=== PATIENT | female | born 1950 | race Caucasian/White ===

== ENCOUNTER 2019-04-18 18:32 | Emergency (ER) | payer OTHER ==
--- NOTE | 2019-04-18 19:05 | ERPHSYRPT ---
- History of Present Illness Time Seen by Provider: 04/18/19 19:02 Historian: patient Exam Limitations: no limitations Physician History: 68-year-old white female arrives with complaint of pain in the anterior chest described as a pressure also states she feels "gassy" symptoms for 3-4 hours. Patient states that she awoke this morning had a headache she took total of 3 tablets. Than later she began to feel "gassy in the anterior chest she has no shortness of breath no nausea no vomiting she continues to feel "gassy in her anterior chest. Past medical history includes leaky heart valve past surgical history includes orthopedic surgery, bilateral hips, foot surgery Social history denies tobacco use denies illicit drug use admits to occasional alcohol use Timing/Duration: today (chest discomfort for 3-4 hours) Activities at Onset: none Quality: pressure, other (feels gassy) Location: substernal Chest Pain Radiation: no radiation Severity of Pain-Max: moderate Severity of Pain-Current: moderate Modifying Factors: Improves With: aspirin (Excedrin) Associated Symptoms: No nausea, No vomiting, No palpitations, No heartburn, No abdominal pain, No shortness of breath, No cough, No hurts to breathe, No diaphoresis, No chills, No fever, No fatigue, No weakness, No swelling/lump in chest, No syncope, No rash, No headache, No dizziness, No edema, No back pain Aspirin Treatment Today: provided at home (patient 3 full size Excedrin tablets) Allergies/Adverse Reactions: sulfamethoxazole [From Bactrim] Allergy (Unknown, Verified 06/30/13 04:49) trimethoprim [From Bactrim] Allergy (Unknown, Verified 06/30/13 04:49) Home Medications: Omeprazole [Prilosec] 40 mg PO DAILY 06/30/13 [History] Hx Tetanus, Diphtheria Vaccination/Date Given: Yes Hx Influenza Vaccination/Date Given: No Hx Pneumococcal Vaccination/Date Given: No - Review of Systems Constitutional: No Fever, No Chills Eyes: No Symptoms Ears, Nose, & Throat: No Symptoms Respiratory: No Cough, No Dyspnea Cardiac: Chest Pain, No No Symptoms, No Edema, No Palpitations, No Syncope, No PND, No Other Abdominal/Gastrointestinal: Other (patient belching), No Nausea, No Vomiting, No Diarrhea, No Constipation, No Hematemesis, No Hematochezia, No Melena, No Dysphagia, No Appetite Changes Genitourinary Symptoms: No Dysuria Musculoskeletal: No Back Pain, No Neck Pain Skin: No Rash Neurological: No Dizziness, No Focal Weakness, No Sensory Changes Psychological: No Symptoms Endocrine: No Symptoms (I had not seen an EKG we need one) All Other Systems: Reviewed and Negative - Past Medical History Pertinent Past Medical History: Yes Neurological History: No Pertinent History ENT History: No Pertinent History Cardiac History: Other Respiratory History: No Pertinent History Endocrine Medical History: No Pertinent History Musculoskeletal History: No Pertinent History GI Medical History: No Pertinent History History: No Pertinent History Psycho-Social History: No Pertinent History Female Reproductive Disorders: No Pertinent History Other Medical History: "LEAKY VALVE" - Past Surgical History Past Surgical History: Yes Neuro Surgical History: No Pertinent History Cardiac: No Pertinent History Respiratory: No Pertinent History Gastrointestinal: No Pertinent History Genitourinary: No Pertinent History Musculoskeletal: Orthopedic Surgery Female Surgical History: No Pertinent History Other Surgical History: RT HIP SX AND FOOT SX - Social History Smoking Status: Never smoker Exposure to second hand smoke: No Drug Use: none Patient Lives Alone: No - Nursing Vital Signs Nursing Vital Signs: Initial Vital Signs Pulse Rate 138 H 04/18/19 18:56 Respiratory Rate 18 04/18/19 18:56 Blood Pressure 120/91 04/18/19 18:56 Pain Scale Pain Intensity 3 - Physical Exam General Appearance: no apparent distress, alert Eye Exam: PERRL/EOMI, eyes nml inspection Ears, Nose, Throat Exam: normal ENT inspection, moist mucous membranes Neck Exam: normal inspection, non-tender, supple, full range of motion Respiratory Exam: normal breath sounds, lungs clear, No respiratory distress Cardiovascular Exam: normal peripheral pulses, tachycardia, capillary refill <2 sec Gastrointestinal/Abdomen Exam: soft, No tenderness, No mass Back Exam: normal inspection, No CVA tenderness, No vertebral tenderness Extremity Exam: normal inspection, normal range of motion Neurologic Exam: alert, oriented x 3, cooperative, gantry rigger II-XII nml as tested, normal mood/affect, sensation nml, No motor deficits Skin Exam: normal color, warm, dry SpO2 Interpretation: normal (this is not some in Jessica. is her sats97%) - Course Nursing assessment & vital signs reviewed: Yes EKG Interpreted by Me: RATE (145 bpm), Sinus Tach, NORMAL AXIS, Other (EKG: Supraventricular tachycardia,, 145 beats per minute normal axis no acute ST or T wave changes) - Radiology Exams Chest X-ray Interpretation: Interpreted by me (no acute disease process) Ordered Tests: Active Orders 24 hr Category Date Time Status Commercial Pest Control Technician STAT Care 04/18/19 19:01 Active EKG-ER Only STAT Care 04/18/19 19:01 Active EKG-ER Only STAT Care 04/18/19 21:12 Active IV Insertion STAT Care 04/18/19 19:01 Active Pulse Oximetry (ED) STAT Care 04/18/19 19:01 Active CHEST 1 VIEW (PORTABLE) Stat Exams 04/18/19 19:01 Taken AMYLASE Stat Lab 04/18/19 19:00 Completed CBC W DIFF Stat Lab 04/18/19 19:00 Completed CMP Stat Lab 04/18/19 19:00 Completed D-DIMER QUANTITATION Stat Lab 04/18/19 19:00 Completed LIPASE Stat Lab 04/18/19 19:00 Completed PROTIME WITH INR Stat Lab 04/18/19 19:00 Completed PTT Stat Lab 04/18/19 19:00 Completed TROPONIN Q3H Lab 04/18/19 19:00 Completed TROPONIN Q3H Lab 04/18/19 22:15 Completed TROPONIN Q3H Lab 04/19/19 01:15 Ordered TROPONIN Q3H Lab 04/19/19 04:15 Ordered TROPONIN Q3H Lab 04/19/19 07:15 Ordered Medication Summary Generic Name Dose Route Start Last Admin Trade Name Freq PRN Reason Stop Dose Admin Sodium Chloride 1,000 mls @ 100 mls/hr 04/18/19 19:15 04/18/19 19:31 Sodium Chloride 0.9% 1000 Ml IV 05/18/19 19:14 100 mls/hr .Q10H SOREN Administration Diltiazem HCl 100 mls @ 10 mls/hr 04/18/19 19:45 04/18/19 20:35 Cardizem Drip 100 Mg/100 Ml D5w IV 05/18/19 19:44 10 mg/hr .Q10H PRN 10 mls/hr HEART RATE/ A-FIB Administration Protocol 10 MG/HR Sodium Chloride 1,000 mls @ 100 mls/hr 04/18/19 22:45 Sodium Chloride 0.9% 1000 Ml IV 05/18/19 22:44 .Q10H SOREN Discontinued Medications Generic Name Dose Route Start Last Admin Trade Name Freq PRN Reason Stop Dose Admin Diltiazem HCl 10 mg 04/18/19 19:14 04/18/19 19:31 Cardizem Iv 50 Mg/10 Ml IV 04/18/19 19:15 10 mg STAT ONE Administration Diltiazem HCl Confirm 04/18/19 19:15 Cardizem Iv 50 Mg/10 Ml Administered 04/18/19 19:16 Dose 50 mg IV .STK-MED ONE Diltiazem HCl 10 mg 04/18/19 19:31 04/18/19 19:41 Cardizem Iv 50 Mg/10 Ml IV 04/18/19 19:32 10 mg STAT ONE Administration Lorazepam 1 mg 04/18/19 19:10 04/18/19 19:30 Ativan 2 Mg/1 Ml Vial IV 04/18/19 19:11 1 mg STAT ONE Administration Lorazepam Confirm 04/18/19 19:10 Ativan 2 Mg/1 Ml Vial Administered 04/18/19 19:11 Dose 2 mg .ROUTE .STK-MED ONE Metoprolol Tartrate 2.5 mg 04/18/19 23:06 Lopressor 5 Mg/5 Ml Injection IV 04/18/19 23:07 STAT ONE Lab/Rad Data: Laboratory Result Diagrams 04/18/19 19:00 04/18/19 19:00 Laboratory Results 04/18/19 04/18/19 04/18/19 Range/Units 22:15 19:00 19:00 WBC (4.0-10.5) K/mm3 RBC (4.1-5.4) M/mm3 Hgb (12.0-16.0) gm/dl Hct (35-47) % MCV (78-100) fl MCH (26-32) pg MCHC (32-36) g/dl RDW (11.5-14.0) % Plt Count (150-450) K/mm3 MPV (6-9.5) fl Gran % (36.0-66.0) % Eos # (Auto) (0-0.5) Absolute Lymphs (auto) (1.0-4.6) Absolute Monos (auto) (0.0-1.3) Lymphocytes % (24.0-44.0) % Monocytes % (0.0-12.0) % Eosinophils % (0.00-5.0) % Basophils % (0.0-0.4) % Absolute Granulocytes (1.4-6.9) Basophils # (0-0.4) PT (9.95-12.35) SECONDS INR (0.8-3.0) APTT (25.3-37.0) SECONDS D-Dimer (215-500) ng/mL Sodium (137-145) mmol/L Potassium (3.5-5.1) mmol/L Chloride (98-107) mmol/L Carbon Dioxide (22-30) mmol/L Anion Gap (5-15) MEQ/L BUN (7-17) mg/dL Creatinine (0.52-1.04) mg/dL Estimated GFR ML/MIN Glucose (74-106) mg/dL Calcium (8.4-10.2) mg/dL Total Bilirubin (0.2-1.3) mg/dL AST (14-36) U/L ALT (0-35) U/L Alkaline Phosphatase (38-126) U/L Troponin I < 0.012 < 0.012 (0.000-0.034) ng/mL Serum Total Protein (6.3-8.2) g/dL Albumin (3.5-5.0) g/dL Amylase 97 (30-110) U/L Lipase 72 (23-300) U/L 04/18/19 04/18/19 04/18/19 Range/Units 19:00 19:00 19:00 WBC 6.8 (4.0-10.5) K/mm3 RBC 4.60 (4.1-5.4) M/mm3 Hgb 14.2 (12.0-16.0) gm/dl Hct 40.9 (35-47) % MCV 88.9 (78-100) fl MCH 30.9 (26-32) pg MCHC 34.7 (32-36) g/dl RDW 14.2 H (11.5-14.0) % Plt Count 210 (150-450) K/mm3 MPV 9.4 (6-9.5) fl Gran % 65.5 (36.0-66.0) % Eos # (Auto) 0.04 (0-0.5) Absolute Lymphs (auto) 1.77 (1.0-4.6) Absolute Monos (auto) 0.52 (0.0-1.3) Lymphocytes % 26.1 (24.0-44.0) % Monocytes % 7.7 (0.0-12.0) % Eosinophils % 0.6 (0.00-5.0) % Basophils % 0.1 (0.0-0.4) % Absolute Granulocytes 4.45 (1.4-6.9) Basophils # 0.01 (0-0.4) PT 10.7 (9.95-12.35) SECONDS INR 0.92 (0.8-3.0) APTT 28.4 (25.3-37.0) SECONDS D-Dimer 296 (215-500) ng/mL Sodium 129 L (137-145) mmol/L Potassium 3.4 L (3.5-5.1) mmol/L Chloride 90 L (98-107) mmol/L Carbon Dioxide 28 (22-30) mmol/L Anion Gap 14.9 (5-15) MEQ/L BUN 15 (7-17) mg/dL Creatinine 0.69 (0.52-1.04) mg/dL Estimated GFR > 60.0 ML/MIN Glucose 93 (74-106) mg/dL Calcium 9.5 (8.4-10.2) mg/dL Total Bilirubin 0.50 (0.2-1.3) mg/dL AST 33 (14-36) U/L ALT 26 (0-35) U/L Alkaline Phosphatase 74 (38-126) U/L Troponin I (0.000-0.034) ng/mL Serum Total Protein 7.6 (6.3-8.2) g/dL Albumin 4.6 (3.5-5.0) g/dL Amylase (30-110) U/L Lipase (23-300) U/L - Progress Progress: improved Air Movement: fair Progress Note: 04/18/19 21:[address] Santiago Padron patient's stone cleaner from [place]. He is requested that we go ahead and give the patient another fluid bolus go ahead and plan on putting her on metoprolol 5 mg IV. He states he can transfer the patient to [facility]. 04/18/19 21:33 Patient's repeat EKG SVT 135 beats per minute normal axis no acute ST or T wave changes 04/18/19 22:45 I discuss case with Dr. Jill Padron's partner at [facility], he has accepted the patient for transfer - Departure Departure Disposition: Transfer ([facility]) Clinical Impression: Supraventricular tachycardia Chest pain Qualifiers: Chest pain type: unspecified Qualified Code(s): R07.9 - Chest pain, unspecified Condition: Fair Critical Care Time: No Referrals: Provider,Unknown [Primary Care Provider] -
[2019-04-18] MEDS ORDERED: Sodium Chloride 0.9% 1000 ML 1,000 ML ONE ×4 (19:07→22:38)
[2019-04-18] MEDS ORDERED: Ativan 2 MG/1 ML VIAL ONE (19:10)
[2019-04-18] MEDS ORDERED: Ativan 2 MG/1 ML VIAL IV ONE (19:10)
[2019-04-18] MEDS ORDERED: Cardizem IV 50 MG/10 ML IV ONE ×3 (19:14→19:31)
[2019-04-18] MEDS ORDERED: Sodium Chloride 0.9% 1000 ML 1,000 ML IV SCH ×2 (19:15→22:45)
[2019-04-18 19:21] LABS: BASOPHIL % 0.1 % (0.0-0.4); Basophil (Absolute #) 0.01 (0-0.4); Eosinophil % 0.6 % (0.00-5.0); Eosinophil (Absolute #) 0.04 (0-0.5); Granulocyte Absolute (ANC) 4.45 (1.4-6.9); Granulocytes % 65.5 % (36.0-66.0); Hematocrit 40.9 % (35-47); Hemoglobin 14.2 gm/dl (12.0-16.0); Lymphocyte (Absolute #) 1.77 (1.0-4.6); Lymphocytes % 26.1 % (24.0-44.0); Mean Cell Volume 88.9 fl (78-100); Mean Corpuscular Hemoglobin 30.9 pg (26-32); Mean Corpuscular Hgb Concent. 34.7 g/dl (32-36); Mean Platelet Volume 9.4 fl (6-9.5); Monocyte (Absolute #) 0.52 (0.0-1.3); Monocytes % 7.7 % (0.0-12.0); Platelet Count 210 K/mm3 (150-450); Red Cell Distribution Width 14.2 % (11.5-14.0); White Blood Count 6.8 K/mm3 (4.0-10.5)
[2019-04-18 19:22] LABS: INR 0.92 (0.8-3.0); PROTIME 10.7 SECONDS (9.95-12.35)
[2019-04-18 19:24] LABS: ALBUMIN 4.6 g/dL (3.5-5.0); ALKALINE PHOSPHATASE 74 U/L (38-126); ANION GAP 14.9 MEQ/L (5-15); BLOOD UREA NITROGEN 15 mg/dL (7-17); CHLORIDE 90 mmol/L (98-107); Calcium 9.5 mg/dL (8.4-10.2); Carbon Dioxide 28 mmol/L (22-30); Creatinine 1 0.69 mg/dL (0.52-1.04); Glucose 93 mg/dL (74-106); Potassium 3.4 mmol/L (3.5-5.1); SGOT/AST 33 U/L (14-36); SGPT/ALT 26 U/L (0-35); SODIUM 129 mmol/L (137-145); Total Protein 7.6 g/dL (6.3-8.2)
[2019-04-18 19:25] LABS: PTT 28.4 SECONDS (25.3-37.0)
[2019-04-18 19:44] LABS: AMYLASE 97 U/L (30-110); LIPASE 72 U/L (23-300)
[2019-04-18] MEDS ORDERED: CARDIZEM DRIP 100 MG/100 ML D5W 100 ML IV PRN (19:45)
[2019-04-18] MEDS ORDERED: CARDIZEM DRIP 100 MG/100 ML D5W 100 ML IV ONE (20:25)
[2019-04-18] MEDS ORDERED: LOPRESSOR 5 MG/5 ML INJECTION IV ONE ×2 (23:06→23:46)
[2019-04-18 23:58] VITALS: BP 106/82; PULSE 115; O2SAT 91
--- NOTE | 2019-04-19 08:51 | XRAY ---
Indication: Chest pressure. Comparison: June 30, 2013. Portable chest less inflated and remains clear. Heart is not enlarged. Bony thorax intact again with mild osteopenia and degenerative changes. Impression: Nonacute chest.
== END 2019-04-19 00:10 | disposition home or self-care (01) ==
LOC: ED 18:32
DX: I47.1 Supraventricular tachycardia (principal); R07.9 Chest pain, unspecified; R51 Headache
CPT/HCPCS: 36000; 36415; 71045; 80053; 82150; 83690; 84484; 85025; 85379; 85610; 85730; 93005; 93041; 96360; 96361; 96365; 96374; 96375; 96376; 99285; J2060

== ENCOUNTER 2025-06-10 20:40 | Emergency (ER) | payer MEDICARE, OTHER ==
[2025-06-10 20:57] VITALS: RESP 18; TEMP 98.3
--- NOTE | 2025-06-10 21:16 | ERPHSYRPT ---
- History of Present Illness Time Seen by Provider: 06/10/25 20:50 Source: patient Exam Limitations: no limitations Patient Subjective Stated Complaint: c/o urinary tract infection, states she feels an urgency to urinate and pressure Triage Nursing Assessment: Patient brought to ED with c/o urinary tract infection. west went to [facility] 2 days ago and was put on antibiotics. [facility] called patient today and requested she come to an ED to Glucose and blood in her urine. Patient did not have bacterial growth in her urine. patient rates pain 1/10, gait steady, vitals wnl, skin w/n/d, patient doesn't appear to be in any distress at this time Physician History: Patient is a 74-year-old female presents to our ED as a referral from [facility] for evaluation of glucosuria and hematuria. Patient reports that she has been experiencing urinary symptomology including dysuria frequency and urgency associated with bladder pressure. Patient went to a [facility]. She advised that urinalysis suggested a urinary tract infection. Patient was started on Keflex which she is currently taking. Patient was called today by the [facility] and advised to come to the ED for an evaluation as there was blood and glucose in her urine. However patient is on Farxiga per her disability examiner. Farxiga causes glucosuria. Patient states that since she has started the antibiotics her symptoms have significantly improved. Patient is practically asymptomatic at this time. No fever no abdominal pain no nausea no vomiting no diarrhea no rash. at bedside. They voiced no other complaints or concerns at this time. Portions of this note were created with voice recognition technology. There may be grammatical, spelling, punctuation or sound alike errors Timing/Duration: today Severity: moderate Associated Symptoms: denies symptoms Allergies/Adverse Reactions: sulfamethoxazole [From Bactrim] Allergy (Unknown, Verified 06/10/25 20:57) trimethoprim [From Bactrim] Allergy (Unknown, Verified 06/10/25 20:57) Home Medications: Omeprazole [Prilosec] 40 mg PO DAILY 06/30/13 [History] Apixaban [Eliquis] 5 mg PO BID 06/10/25 [History] Atorvastatin Calcium 20 mg PO DAILY 06/10/25 [History] Cephalexin Mh 500 mg [Keflex 500 mg] 500 mg PO BID 06/10/25 [History] Dapagliflozin Propanediol [Farxiga] 10 mg PO DAILY 06/10/25 [History] Famotidine 20 mg PO DAILY PRN PRN 06/10/25 [History] Sertraline HCl [Zoloft] 25 mg PO DAILY 06/10/25 [History] Sotalol HCl [Betapace AF] 160 mg PO BID 06/10/25 [History] Valsartan 160 mg PO DAILY 06/10/25 [History] Hx Tetanus, Diphtheria Vaccination/Date Given: Yes Hx Influenza Vaccination/Date Given: Yes Hx Pneumococcal Vaccination/Date Given: No Travel Risk - International Travel Have you traveled outside of the country in past 3 weeks: No - Emerging Infectious Disease Are you exhibiting symptoms associated with any current EIDs: No - Review of Systems All Other Systems: Reviewed and Negative - Past Medical History Pertinent Past Medical History: Yes Neurological History: No Pertinent History ENT History: No Pertinent History Cardiac History: Arrhythmia, Hypertension Respiratory History: No Pertinent History Endocrine Medical History: No Pertinent History Musculoskeletal History: No Pertinent History GI Medical History: No Pertinent History History: No Pertinent History Psycho-Social History: Anxiety Female Reproductive Disorders: No Pertinent History Other Medical History: "LEAKY VALVE", a. fib - Past Surgical History Past Surgical History: Yes Neuro Surgical History: No Pertinent History Cardiac: No Pertinent History Respiratory: No Pertinent History Gastrointestinal: Appendectomy Genitourinary: No Pertinent History Musculoskeletal: Orthopedic Surgery Female Surgical History: No Pertinent History Other Surgical History: RT HIP SX AND FOOT SX, RIGHT KNEE REPLACEMENT - Social History Smoking Status: Never smoker Exposure to second hand smoke: No Drug Use: none - Social Determinants of Health Will the patient participate in the screening: Yes Do you worry about a steady place to live?: No Do you have any problems with any of the following?: No known problems In the past 12 months,have you had to go without utilities?: No Transportation Issues: No Has anyone in your support network made you feel unsafe?: No Have you or anyone in your house had to go w/o enough food: No - Nursing Vital Signs Nursing Vital Signs: Initial Vital Signs Temperature 98.3 F 06/10/25 20:45 Pulse Rate 71 06/10/25 20:45 Respiratory Rate 18 06/10/25 20:45 Blood Pressure 176/106 06/10/25 20:45 O2 Sat by Pulse Oximetry 100 06/10/25 20:45 Pain Scale Pain Intensity 1 - Physical Exam General Appearance: no apparent distress, alert Eye Exam: PERRL/EOMI, eyes nml inspection Ears, Nose, Throat Exam: normal ENT inspection, moist mucous membranes Neck Exam: normal inspection, full range of motion Respiratory Exam: normal breath sounds, lungs clear, No respiratory distress Cardiovascular Exam: regular rate/rhythm Gastrointestinal/Abdomen Exam: soft, normal bowel sounds, No tenderness, No mass Back Exam: normal inspection, normal range of motion, No CVA tenderness, No vertebral tenderness Extremity Exam: normal inspection, normal range of motion, contusions Neurologic Exam: alert, oriented x 3, cooperative, normal mood/affect, No motor deficits Skin Exam: normal color, warm, dry, No rash Lymphatic Exam: No adenopathy SpO2 Interpretation: normal SpO2: 100 O2 Delivery: Room Air - Course Nursing assessment & vital signs reviewed: Yes Ordered Tests: Active Orders 24 hr Category Date Time Status UA W/RFX UR CULTURE Stat Lab 06/10/25 21:05 Completed Lab/Rad Data: Laboratory Results 06/10/25 Range/Units 21:05 Urine Color Yellow (Yellow) Urine Appearance Clear (Clear) Urine pH 6.5 (4.6-8.0) Ur Specific [place] <=1.005 (1.005-1.030) Urine Protein Negative (Negative) Urine Glucose (UA) 500 A (Negative) mg/dL Urine Ketones Negative (Negative) Urine Blood Negative (Negative) Urine Nitrite Negative (Negative) Urine Bilirubin Negative (Negative) Urine Urobilinogen 0.2 (0.2) mg/dL Ur Leukocyte Esterase Trace A (Negative) U Hyaline Cast (Auto) NONE SEEN (0-2) /LPF Urine Microscopic RBC 0-2 (0-5) /HPF Urine Microscopic WBC 0-2 (0-5) /HPF Ur Epithelial Cells None Seen (None Seen) /HPF Urine Bacteria None Seen (None Seen) /HPF Urine Culture Reflexed NO (NO) - Progress Progress: improved Progress Note: 74-year-old female presents to our ED as a recommendation per her quick care provider. Quick care was concerned that patient had blood and glucose in her urine. Physical exam something unremarkable. We repeated the urinalysis. Urinalysis does not show any blood. Patient currently on antibiotic. The blood was likely reactive to the UTI. Of note patient is on Eliquis for A-fib. The Eliquis would increase the propensity for hematuria in the face of urinary tract infection. But the hematuria has resolved based on our UA here. Trace leukocyte Estrace observed. This is likely resolving from the previously diagnosed infection. There is area which is likely secondary to the Farxiga. Patient advised to continue the Keflex. No indication for further workup at this time. Will discharge home. Patient has improved clinically. Patient agrees to follow-up with her primary care doctor within a week or so for further evaluation. at bedside. They voiced no other complaints or concerns at this time. Portions of this note were created with voice recognition technology. There may be grammatical, spelling, punctuation or sound alike errors Complexity of problem addressed is moderate acute complicated. No critical care time. Complex of data reviewed and analyzed as moderate. Test ordered test reviewed results analyzed and correlated clinically with history and physical exam. Risk of complication and or risk of morbidity/mortality of patient management is low. Vital stable. Time spent to discharge patient is approximately 10 minutes. Plan of care established for shared decision making. No social determinants of health present to impede follow-up. Portions of this note were created with voice recognition technology. There may be grammatical, spelling, punctuation or sound alike errors 06/10/25 21:53 Counseled pt/family regarding: lab results, diagnosis, need for follow-up - Departure Departure Disposition: Home Clinical Impression: UTI (urinary tract infection), Glucosuria Condition: Stable Critical Care Time: No Referrals: Provider,Unknown [Primary Care Provider, UNKNOWN] - Follow up/PCP as directed Additional Instructions: Discharge/Care Plan PIPER COLIN was seen on 06/10/25 in the Emergency Room. The patient was counseled regarding Diagnosis,Lab results, Imaging studies, need for follow up and when to return to the Emergency Room. Prescriptions given: Discharge Note I have spoken with the patient and/or caregivers. I have explained the patient's condition, diagnosis and treatment plan based on the information available to me at this time. I have answered the patient's and/or caregiver's questions and addressed any concerns. The patient and/or caregivers have as good understanding of the patient's diagnosis, condition and treatment plan as can be expected at this point. The vital signs have been stable. The patient's condition is stable and appropriate for discharge from the emergency department. The patient will pursue further outpatient evaluation with the primary care physician or other designated or consulting physician as outlined in the discharge instructions. The patient and/or caregivers are agreeable to this plan of care and follow-up instructions have been explained in detail. The patient and/or caregivers have received these instruction. The patient/and or caregivers are aware that any significant change in condition or worsening of symptoms should prompt an immediate return to this or the closest emergency department or call 911.
[2025-06-10 21:21] LABS: Glucose, Urine 500 mg/dL (Negative); Protein,Urine Dip Negative (Negative); RBC 0-2 /HPF (0-5); WBC 0-2 /HPF (0-5)
[2025-06-10 21:44] VITALS: BP 165/99; PULSE 69
[2025-06-10 21:49] VITALS: O2SAT 100
== END 2025-06-10 21:55 | disposition home or self-care (01) ==
LOC: ED 20:40
DX: N39.0 Urinary tract infection, site not specified (principal); R81 Glycosuria; R31.9 Hematuria, unspecified; R30.0 Dysuria; I10 Essential (primary) hypertension; Z79.01 Long term (current) use of anticoagulants; Z79.84 Long term (current) use of oral hypoglycemic drugs; Z79.899 Other long term (current) drug therapy